=== PATIENT | female | born 1995 | race American Indian/Alaskan Native ===

== ENCOUNTER 2018-08-20 06:37 | Emergency (ER) | payer OTHER ==
[2018-08-20 06:59] VITALS: BP 133/71
[2018-08-20] MEDS ORDERED: NACL 0.9% 1000 ML 1,000 ML IV ONE (06:59)
[2018-08-20 07:27] LABS: Basophils % (Auto) 0.4 % (0.0-1.8); Eosinophils % (Auto) 0.5 % (0.0-4.3); Hematocrit 40.5 % (30.3-42.9); Hemoglobin 13.5 gm/dl (10.1-14.3); Lymphocytes # (Auto) 1.4 K/mm3 (1.2-5.4); Lymphocytes % (Auto) 21.1 % (13.4-35.0); Mean Corpuscular HGB Conc 33 % (30-34); Mean Corpuscular Volume 88 fl (79-97); Monocytes # (Auto) 0.6 K/mm3 (0.0-0.8); Monocytes % (Auto) 8.7 % (0.0-7.3); Platelet Count 210 K/mm3 (140-440); Red Cell Distribution Width 14.1 % (13.2-15.2)
[2018-08-20 07:31] LABS: Bilirubin,Urine NEG (Negative); Blood,Urine NEG (Negative); Color,Urine Yellow (Yellow); Protein,Urine <15 mg/dL mg/dL (Negative); Urobilinogen,Urine < 2.0 mg/dL (<2.0)
[2018-08-20 07:46] LABS: Alanine Aminotransferase 10 units/L (7-56); Albumin 4.5 g/dL (3.9-5); BUN/Creatinine Ratio 14; Blood Urea Nitrogen 10 mg/dL (7-17); Hemolysis Index 8
[2018-08-20] MEDS ORDERED: MORPHINE IV ONE (08:23)
[2018-08-20] MEDS ORDERED: ZOFRAN IV ONE (08:23)
--- NOTE | 2018-08-20 09:06 | Emergency Department Report ---
ED Abdominal Pain HPI - General Chief Complaint: Abdominal Pain Stated Complaint: FOOD POISONING/STOMACH PAIN Time Seen by Provider: 08/20/18 08:22 Source: patient Mode of arrival: Ambulatory Limitations: No Limitations - History of Present Illness Initial Comments: This is a 23-year-old female nontoxic, well nourished in appearance, no acute signs of distress presents to the ED with c/o of nausea and vomiting and abdominal pain 1 day. Patient describes vomiting as food content and yellow gastric acid. Patient describes abdominal pain as cramping and aching with level of 3/10 diffuse. Patient denies chest pain, short of breath, fever, chills, headache, stiff neck, numbness or tingling. Patient denies any diarrhea or constipation. Patient denies any recent travels. Patient denies any allergies or PMH. MD Complaint: abdominal pain -: Last night Location: diffuse Radiation: none Migration to: no migration Severity: mild Severity scale (0 -10): 3 Quality: cramping, aching Consistency: constant Improves With: nothing Worsens With: nothing Associated Symptoms: nausea, vomiting. denies: diarrhea, fever, chills, constipation, dysuria, hematemesis, hematochezia, melena, hematuria, anorexia, syncope - Related Data Previous Rx's Medication Instructions Recorded Last Taken Type Ibuprofen [Motrin] 400 mg PO Q8H PRN #30 tablet 02/16/16 Unknown Rx Nitrofurantoin [place]/M-Cryst 100 mg PO Q12HR #10 capsule 02/16/16 Unknown Rx [Macrobid CAP] Ondansetron [Zofran Odt] 4 mg PO Q8HR PRN #20 tab.rapdis 02/16/16 Unknown Rx metroNIDAZOLE [Flagyl] 500 mg PO Q12HR #14 tab 02/16/16 Unknown Rx traMADol [Ultram 50 MG tab] 50 mg PO Q6HR PRN #20 tablet 02/16/16 Unknown Rx Acetaminophen/Codeine [Tylenol 1 tab PO Q6H PRN #12 tab 08/20/18 Unknown Rx /Codeine # 3 tab] Ondansetron [Zofran Odt] 4 mg PO Q8HR PRN #20 tab.rapdis 08/20/18 Unknown Rx Allergies Allergy/AdvReac Type Severity Reaction Status Date / Time No Known Allergies Allergy Unverified 02/16/16 08:25 ED Review of Systems ROS: Stated complaint: FOOD POISONING/STOMACH PAIN Other details as noted in HPI Constitutional: denies: chills, fever Eyes: denies: eye pain, eye discharge, vision change ENT: denies: ear pain, throat pain Respiratory: denies: cough, shortness of breath, wheezing Cardiovascular: denies: chest pain, palpitations Endocrine: no symptoms reported Gastrointestinal: abdominal pain, nausea, vomiting. denies: diarrhea Genitourinary: denies: urgency, dysuria, discharge Musculoskeletal: denies: back pain, joint swelling, arthralgia Skin: denies: rash, lesions Neurological: denies: headache, weakness, paresthesias Psychiatric: denies: anxiety, depression Hematological/Lymphatic: denies: easy bleeding, easy bruising ED Past Medical Hx - Past Medical History Previous Medical History?: No - Surgical History Past Surgical History?: No - Social History Smoking Status: Never Smoker Substance Use Type: Marijuana - Medications Home Medications: Home Medications Medication Instructions Recorded Confirmed Last Taken Type Ibuprofen [Motrin] 400 mg PO Q8H PRN #30 tablet 02/16/16 Unknown Rx Nitrofurantoin [place]/M-Cryst 100 mg PO Q12HR #10 capsule 02/16/16 Unknown Rx [Macrobid CAP] Ondansetron [Zofran Odt] 4 mg PO Q8HR PRN #20 tab.rapdis 02/16/16 Unknown Rx metroNIDAZOLE [Flagyl] 500 mg PO Q12HR #14 tab 02/16/16 Unknown Rx traMADol [Ultram 50 MG tab] 50 mg PO Q6HR PRN #20 tablet 02/16/16 Unknown Rx Acetaminophen/Codeine [Tylenol 1 tab PO Q6H PRN #12 tab 08/20/18 Unknown Rx /Codeine # 3 tab] Ondansetron [Zofran Odt] 4 mg PO Q8HR PRN #20 tab.rapdis 08/20/18 Unknown Rx ED Physical Exam - General Limitations: No Limitations General appearance: alert, in no apparent distress - Head Head exam: Present: atraumatic, normocephalic - Eye Eye exam: Present: normal appearance - Neck Neck exam: Present: normal inspection, full ROM. Absent: tenderness, meningismus, lymphadenopathy - Respiratory Respiratory exam: Present: normal lung sounds bilaterally. Absent: respiratory distress, wheezes, rales, rhonchi, stridor, chest wall tenderness, accessory muscle use, decreased breath sounds, prolonged expiratory - Cardiovascular Cardiovascular Exam: Present: regular rate, normal rhythm, normal heart sounds. Absent: irregular rhythm, systolic murmur, diastolic murmur, rubs, gallop - GI/Abdominal GI/Abdominal exam: Present: soft, normal bowel sounds. Absent: distended, tenderness, guarding, rebound, rigid, diminished bowel sounds, hyperactive bowel sounds, hypoactive bowel sounds, mass, bruit, pulsatile mass, hernia - Expanded GI/Abdominal Exam Expanded GI/Abdominal exam: Absent: psoas sign, Sanderson's sign, Rovsing's sign, tenderness at Mcburney's Point, ascites - Extremities Exam Extremities exam: Present: normal inspection, full ROM, normal capillary refill - Back Exam Back exam: Present: normal inspection, full ROM. Absent: tenderness, CVA tenderness (R), CVA tenderness (L), muscle spasm, paraspinal tenderness, vertebral tenderness, rash noted - Neurological Exam Neurological exam: Present: alert, oriented X3, normal gait - Psychiatric Psychiatric exam: Present: normal affect, normal mood - Skin Skin exam: Present: warm, dry, intact, normal color. Absent: rash ED Course Vital Signs 08/20/18 06:51 Temperature 98 F Pulse Rate 103 H Respiratory 16 Rate Blood Pressure 133/71 O2 Sat by Pulse 97 Oximetry - Reevaluation(s) Reevaluation #1: 08/20/18 09:06 Patient is speaking in full sentences with no signs of distress noted. ED Medical Decision Making - Lab Data Result diagrams: 08/20/18 07:07 08/20/18 07:07 - Medical Decision Making This is a 23-year-old female that presents with abdominal pain. Patient is stable and was examined by me. There is no abdominal tenderness. Negative signs of symptoms of appendicitis. Labs obtained. UA obtained. XR of abdomen obtained and dictated by the radiologist. Patient is notified of the report with no questions noted by the patient. Vital signs are stable prior to discharge. Patient received medical treatment in the ED which patient stated symptoms has resolved and subsided. Was instructed note to operate any machinery due to possible drowsiness and stated someone will drive the patient home. A by mouth challenge has been obtained and patient tolerated well with no nausea vomiting. Patient was notified of strict precautions of appendicitis symptoms and to return to the ED if symptoms occurs as soon as possible. Patient was also instructed to Follow-up with a primary care doctor in 3-5 days or if symptoms worsen and continue return to emergency room as soon as possible. At time of discharge, the patient does not seem toxic or ill in appearance. No acute signs of distress noted. Patient agrees to discharge treatment plan of care. No further questions noted by the patient. Critical care attestation.: If time is entered above; I have spent that time in minutes in the direct care of this critically ill patient, excluding procedure time. ED Disposition Clinical Impression: Nausea & vomiting Qualifiers: Vomiting type: unspecified Vomiting Intractability: non-intractable Qualified Code(s): R11.2 - Nausea with vomiting, unspecified Abdominal pain Qualifiers: Abdominal location: generalized Qualified Code(s): R10.84 - Generalized abdominal pain Disposition: - TO HOME OR SELFCARE Is pt being admited?: No Does the pt Need Aspirin: No Condition: Stable Instructions: Abdominal Pain (ED), Acute Nausea and Vomiting (ED) Additional Instructions: Follow-up with a primary care doctor in 3-5 days or if symptoms worsen and continue return to emergency room as soon as possible. Prescriptions: Acetaminophen/Codeine [Tylenol /Codeine # 3 tab] 1 tab PO Q6H PRN #12 tab PRN Reason: Pain , Severe (7-10) Ondansetron [Zofran Odt] 4 mg PO Q8HR PRN #20 tab.rapdis PRN Reason: Nausea Referrals: FAY MAC MD [Primary Care Provider] - 3-5 Days ADI MATUTE MD [Staff Physician] - 3-5 Days [facility] [Outside] - 3-5 Days [facility] [Outside] - 3-5 Days Forms: Work/School Release Form(ED)
--- NOTE | 2018-08-20 09:28 | XRay Report ---
PROCEDURE: XR ABD SERIES W CXR 1V TECHNIQUE: Chest x-ray, KUB and erect abdomen HISTORY: n/v abd pain COMPARISONS: None FINDINGS: Trachea midline. Heart size normal. No acute airspace disease. No effusion. No free air below the diaphragm Gas throughout the colon. Nonobstructive pattern. No organomegaly No renal calcification. Calcification left pelvis compatible with phlebolith No acute bony abnormality IMPRESSION: Clear chest No free air Nonobstructive bowel gas pattern. This document is electronically signed by Stanislaw Cano MD., August 20 2018 09:26:30 AM ET
== END 2018-08-20 10:01 | disposition home or self-care (01) ==
LOC: ED 06:37
DX: R10.84 Generalized abdominal pain (principal); R11.2 Nausea with vomiting, unspecified; F12.10 Cannabis abuse, uncomplicated
CPT/HCPCS: 36415; 74022; 80053; 81001; 83690; 84703; 85025; 96361; 96374; 96375; 99284; J2270; J2405; J7030

== ENCOUNTER 2018-12-21 19:14 | Inpatient (IN) | payer OTHER ==
[2018-12-21] MEDS ORDERED: ZOFRAN ODT PO ONE (19:25)
[2018-12-21] MEDS ORDERED: TYLENOL PO ONE (19:25)
--- NOTE | 2018-12-21 19:25 | Event Note ---
ED Screening Note ED Screening Note: abdominal pain that began two hours ago +n,v,d no sick contacts no PMhx no allergies to meds LNMP: november 03 This initial assessment/diagnostic orders/clinical plan/treatment(s) is/are subject to change based on patients health status, clinical progression and re- assessment by fellow clinical providers in the ED. Further treatment and workup at subsequent clinical providers discretion. Patient/guardian urged not to elope from the ED as their condition may be serious if not clinically assessed and m anaged. Initial orders include: labs, UA given zofran and ibuprofen
[2018-12-21 19:50] LABS: Basophils % (Auto) 0.3 % (0.0-1.8); Eosinophils % (Auto) 0.4 % (0.0-4.3); Hematocrit 40.8 % (30.3-42.9); Hemoglobin 13.8 gm/dl (10.1-14.3); Lymphocytes # (Auto) 1.4 K/mm3 (1.2-5.4); Lymphocytes % (Auto) 13.2 % (13.4-35.0); Mean Corpuscular HGB Conc 34 % (30-34); Mean Corpuscular Volume 90 fl (79-97); Monocytes # (Auto) 0.6 K/mm3 (0.0-0.8); Monocytes % (Auto) 5.4 % (0.0-7.3); Platelet Count 208 K/mm3 (140-440); Red Blood Count 4.52 M/mm3 (3.65-5.03); Red Cell Distribution Width 13.7 % (13.2-15.2)
[2018-12-21] MEDS ORDERED: NACL 0.9% 1000 ML 1,000 ML IV ONE ×2 (20:07→23:02)
[2018-12-21] MEDS ORDERED: ZOFRAN IV ONE (20:07)
[2018-12-21] MEDS ORDERED: MORPHINE IV ONE (20:07)
[2018-12-21] MEDS ORDERED: ZOFRAN ONE (20:12)
[2018-12-21 21:09] LABS: Alanine Aminotransferase 11 units/L (7-56); Albumin 4.5 g/dL (3.9-5); BUN/Creatinine Ratio 10; Blood Urea Nitrogen 7 mg/dL (7-17); Calcium 9.4 mg/dL (8.4-10.2); Hemolysis Index 10
--- NOTE | 2018-12-21 21:18 | Emergency Department Report ---
ED Abdominal Pain HPI - General Chief Complaint: Abdominal Pain Stated Complaint: STOMACH/CHEST PAIN/VOMITING Time Seen by Provider: 12/21/18 19:24 Source: patient Mode of arrival: Ambulatory Limitations: No Limitations - History of Present Illness Initial Comments: This is a 23-year-old female nontoxic, well nourished in appearance, no acute signs of distress presents to the ED with c/o of nausea and vomiting and abdominal pain 1 day. Patient describes vomiting as food content and yellow gastric acid. Patient describes abdominal pain as cramping and aching with level of 10/10 diffuse. Patient denies chest pain, short of breath, fever, chills, headache, stiff neck, numbness or tingling. Patient denies any diarrhea or constipation. Patient denies any recent travels. Patient denies any drug allergies or significant past medical history. MD Complaint: abdominal pain -: days(s) (1) Location: diffuse Radiation: none Migration to: no migration Severity: mild Severity scale (0 -10): 10 Quality: cramping, aching Consistency: constant Improves With: nothing Worsens With: nothing Associated Symptoms: nausea, vomiting. denies: diarrhea, fever, chills, constipation, dysuria, hematemesis, hematochezia, melena, hematuria, anorexia, syncope - Related Data Previous Rx's Medication Instructions Recorded Last Taken Type Ibuprofen [Motrin] 400 mg PO Q8H PRN #30 tablet 02/16/16 Unknown Rx Nitrofurantoin [place]/M-Cryst 100 mg PO Q12HR #10 capsule 02/16/16 Unknown Rx [Macrobid CAP] Ondansetron [Zofran Odt] 4 mg PO Q8HR PRN #20 tab.rapdis 02/16/16 Unknown Rx metroNIDAZOLE [Flagyl] 500 mg PO Q12HR #14 tab 02/16/16 Unknown Rx traMADol [Ultram 50 MG tab] 50 mg PO Q6HR PRN #20 tablet 02/16/16 Unknown Rx Acetaminophen/Codeine [Tylenol 1 tab PO Q6H PRN #12 tab 08/20/18 Unknown Rx /Codeine # 3 tab] Ondansetron [Zofran Odt] 4 mg PO Q8HR PRN #20 tab.rapdis 08/20/18 Unknown Rx Allergies Allergy/AdvReac Type Severity Reaction Status Date / Time No Known Allergies Allergy Unverified 02/16/16 08:25 ED Review of Systems ROS: Stated complaint: STOMACH/CHEST PAIN/VOMITING Other details as noted in HPI Constitutional: denies: chills, fever Eyes: denies: eye pain, eye discharge, vision change ENT: denies: ear pain, throat pain Respiratory: denies: cough, shortness of breath, wheezing Cardiovascular: denies: chest pain, palpitations Endocrine: no symptoms reported Gastrointestinal: abdominal pain, nausea, vomiting. denies: diarrhea Genitourinary: denies: urgency, dysuria, discharge Musculoskeletal: denies: back pain, joint swelling, arthralgia Skin: denies: rash, lesions Neurological: denies: headache, weakness, paresthesias Psychiatric: denies: anxiety, depression Hematological/Lymphatic: denies: easy bleeding, easy bruising ED Past Medical Hx - Past Medical History Previous Medical History?: No - Surgical History Past Surgical History?: No - Social History Smoking Status: Current Every Day Smoker Substance Use Type: Marijuana - Medications Home Medications: Home Medications Medication Instructions Recorded Confirmed Last Taken Type Ibuprofen [Motrin] 400 mg PO Q8H PRN #30 tablet 02/16/16 Unknown Rx Nitrofurantoin [place]/M-Cryst 100 mg PO Q12HR #10 capsule 02/16/16 Unknown Rx [Macrobid CAP] Ondansetron [Zofran Odt] 4 mg PO Q8HR PRN #20 tab.rapdis 02/16/16 Unknown Rx metroNIDAZOLE [Flagyl] 500 mg PO Q12HR #14 tab 02/16/16 Unknown Rx traMADol [Ultram 50 MG tab] 50 mg PO Q6HR PRN #20 tablet 02/16/16 Unknown Rx Acetaminophen/Codeine [Tylenol 1 tab PO Q6H PRN #12 tab 08/20/18 Unknown Rx /Codeine # 3 tab] Ondansetron [Zofran Odt] 4 mg PO Q8HR PRN #20 tab.rapdis 08/20/18 Unknown Rx ED Physical Exam - General Limitations: No Limitations General appearance: alert, in no apparent distress - Head Head exam: Present: atraumatic, normocephalic - Eye Eye exam: Present: normal appearance - Neck Neck exam: Present: normal inspection, full ROM. Absent: tenderness, meningismus, lymphadenopathy - Respiratory Respiratory exam: Present: normal lung sounds bilaterally. Absent: respiratory distress, wheezes, rales, rhonchi, stridor, chest wall tenderness, accessory muscle use, decreased breath sounds, prolonged expiratory - Cardiovascular Cardiovascular Exam: Present: regular rate, normal rhythm, tachycardia, normal heart sounds. Absent: bradycardia, irregular rhythm, systolic murmur, diastolic murmur, rubs, gallop - GI/Abdominal GI/Abdominal exam: Present: soft, tenderness (diffuse), normal bowel sounds. Absent: distended, guarding, rebound, rigid, diminished bowel sounds - Extremities Exam Extremities exam: Present: normal inspection, full ROM - Back Exam Back exam: Present: normal inspection, full ROM. Absent: tenderness, CVA tenderness (R), CVA tenderness (L), muscle spasm, paraspinal tenderness, vertebral tenderness, rash noted - Neurological Exam Neurological exam: Present: alert, oriented X3, normal gait - Psychiatric Psychiatric exam: Present: normal affect, normal mood - Skin Skin exam: Present: warm, dry, intact, normal color. Absent: rash ED Course Vital Signs 12/21/18 12/21/18 19:25 20:10 Temperature 97.6 F Pulse Rate 113 H Respiratory 18 20 Rate Blood Pressure 136/76 O2 Sat by Pulse 99 Oximetry - Reevaluation(s) Reevaluation #1: 12/21/18 21:17 Patient is speaking in full sentences with no signs of distress noted. - Consultations Consultation #1: 12/21/18 23:21 Patient has been consulted with Dr. Gavin (hospitalist) about patient history, physical exam, and labs/CT results and accepts patient to services. ED Medical Decision Making - Lab Data Result diagrams: 12/21/18 19:34 12/21/18 19:34 - Medical Decision Making 23-year-old female that presents with general abdominal pain and intractable nausea vomiting. Patient is stable and was examined by me. Patient is admitted with Dr. Gavin for further evaluation and treatment. Patient received IV normal saline with Reglan, morphine, Dilaudid, Zofran. CT has been dictated by radiologist with by mouth and IV contrast with no acute abdomen. Mother was notified of the results with all questions noted by the patient and the mother. At time of admission, the patient does not seem toxic or ill in appearance. No acute signs of distress noted. Patient agrees to admission treatment plan of care. No further questions noted by the patient. Critical care attestation.: If time is entered above; I have spent that time in minutes in the direct care of this critically ill patient, excluding procedure time. ED Disposition Clinical Impression: Intractable pain Abdominal pain Qualifiers: Abdominal location: generalized Qualified Code(s): R10.84 - Generalized abdominal pain Intractable nausea and vomiting Qualifiers: Vomiting type: unspecified Qualified Code(s): R11.2 - Nausea with vomiting, unspecified Disposition: DC-[id number] OP ADMIT IP TO THIS HOSP Is pt being admited?: Yes Condition: Stable
[2018-12-21] MEDS ORDERED: REGLAN IV ONE (22:31)
[2018-12-21] MEDS ORDERED: DILAUDID IV ONE (23:01)
[2018-12-21] MEDS ORDERED: DILAUDID ONE (23:04)
--- NOTE | 2018-12-21 23:12 | Cat Scan Report ---
CT ABDOMEN AND PELVIS WITH CONTRAST INDICATION: Unspecified abdominal pain. COMPARISON: CT of the abdomen and pelvis with contrast from 02/16/2016. TECHNIQUE: Axial, coronal and sagittal CT imaging of the abdomen and pelvis was performed after inje ction of 100 cc Omnipaque [address] scans at this location are performed using CT dose re duction for ALARA by means of automated exposure control. FINDINGS: LOWER CHEST: No significant abnormality. LIVER: No significant abnormality. BILIARY: No significant abnormality. PANCREAS: No significant abnormality. SPLEEN: No significant abnormality. ADRENALS: No significant abnormality. KIDNEYS AND URETERS: No significant abnormality. GI TRACT: No significant abnormality of the stomach, small bowel or colon. Unremarkable appendix. PERITONEUM: A small amount of free fluid is seen along the pelvis. No free air. No fluid collection. LYMPH NODES: No significant adenopathy. VASCULATURE: The aorta and its visualized branches are patent and normal in caliber. No significant a therosclerosis. Prominent venous collaterals are seen along the pelvis. URINARY BLADDER: No significant abnormality. REPRODUCTIVE ORGANS: No significant abnormality. ADDITIONAL FINDINGS: None. SKELETAL SYSTEM: No significant abnormality. IMPRESSION: 1. A small amount of free fluid along the pelvis is likely physiologic. 2. No additional acute abnormality of the abdomen or pelvis. 3. Additional findings as above. Signer Name: Mina Hartley MD Signed: 12/21/2018 11:08 PM Workstation Name: [id number]
[2018-12-21 23:32] LABS: Bilirubin,Urine NEG (Negative); Blood,Urine NEG (Negative); Color,Urine Yellow (Yellow); Mucus,Urine 1+ /HPF; Protein,Urine <15 mg/dL mg/dL (Negative); Urobilinogen,Urine < 2.0 mg/dL (<2.0)
[2018-12-21] MEDS ORDERED: D5/0.45NS 1,000 ML IV SCH (23:45)
[2018-12-21] MEDS ORDERED: MORPHINE IV PRN (23:57)
[2018-12-21] MEDS ORDERED: SODIUM CHLORIDE FLUSH SYRINGE 10 ML IV PRN (23:57)
[2018-12-21] MEDS ORDERED: ZOFRAN IV PRN (23:57)
[2018-12-21] MEDS ORDERED: REGLAN IV PRN (23:57)
[2018-12-21] MEDS ORDERED: TYLENOL PO PRN (23:57)
--- NOTE | 2018-12-21 23:57 | History and Physical Report ---
<STEPHANIE BARROW - Last Filed: 12/22/18 01:26> History of Present Illness Date of examination: 12/21/18 Date of admission: 12/21/18 23:22 Chief complaint: abdominal pain, n/v x 1 day History of present illness: Pt is a 23-year-old female with no prior medical problem who presents to the ER with c/o severe abdominal pain, nausea and vomiting 1 day. Patient and mother in room states that the pain started around 1pm, pt states she started to have sudden sharp cramp-like pain, diffuse through out her abdomen with an intensity of 10/10. Pt states that her emesis contain digested food particle and yellow gastric acid, her last meal was a spaghetti. Patient denies any recent traveling, denies prior abdominal pain or surgery, denies SOB, denies chest pain, denies fever or chills, denies headache, denies neck stiffness, denies di arrhea or constipation. Her test was negative, her lipase was 167, she had a CT scan of the abdomen and pelvis that was negative for any pathology. Pt is admitted for further evaluation and treatment. Past History Past Medical History: No medical history Past Surgical History: No surgical history Social history: no significant social history Family history: no significant family history Medications and Allergies Allergies Allergy/AdvReac Type Severity Reaction Status Date / Time No Known Allergies Allergy Unverified 02/16/16 08:25 Home Medications Medication Instructions Recorded Confirmed Last Taken Type Ibuprofen [Motrin] 400 mg PO Q8H PRN #30 tablet 02/16/16 Unknown Rx Nitrofurantoin [place]/M-Cryst 100 mg PO Q12HR #10 capsule 02/16/16 Unknown Rx [Macrobid CAP] Ondansetron [Zofran Odt] 4 mg PO Q8HR PRN #20 tab.rapdis 02/16/16 Unknown Rx metroNIDAZOLE [Flagyl] 500 mg PO Q12HR #14 tab 02/16/16 Unknown Rx traMADol [Ultram 50 MG tab] 50 mg PO Q6HR PRN #20 tablet 02/16/16 Unknown Rx Acetaminophen/Codeine [Tylenol 1 tab PO Q6H PRN #12 tab 08/20/18 Unknown Rx /Codeine # 3 tab] Ondansetron [Zofran Odt] 4 mg PO Q8HR PRN #20 tab.rapdis 08/20/18 Unknown Rx Active Meds: Active Medications Enoxaparin Sodium (Lovenox) 40 mg SUB-Q QDAY STEPHEN Sodium Chloride (Nacl 0.9% 1000 Ml) 1,000 mls @ 999 mls/hr IV BOLUS ONE Stop: 12/22/18 00:02 Last Admin: 12/21/18 23:08 Dose: 999 mls/hr Documented by: Review of Systems Gastrointestinal: abdominal pain, nausea, vomiting Exam - Constitutional Vitals: Temp Pulse Resp BP Pulse Ox 97.6 F 113 H 20 136/76 99 12/21/18 19:25 12/21/18 19:25 12/21/18 20:10 12/21/18 19:25 12/21/18 19:25 General appearance: Present: no acute distress - EENT Eyes: Present: EOM intact ENT: hearing intact, clear oral mucosa - Neck Neck: Present: supple - Respiratory Respiratory effort: normal Respiratory: right: diminished, bilateral: CTA - Cardiovascular Rhythm: regular Heart Sounds: Present: S1 & S2 - Extremities Extremities: no ischemia, No edema Peripheral Pulses: within normal limits - Abdominal General gastrointestinal: Present: tender, non-distended Localized gastrointestinal: tender: diffuse Female genitourinary: Present: deferred - Rectal Rectal Exam: deferred - Integumentary Integumentary: Present: warm, dry - Musculoskeletal Musculoskeletal: strength equal bilaterally - Psychiatric Psychiatric: appropriate mood/affect, cooperative - Neurologic Neurologic: moves all extremities Results - Labs CBC & Chem 7: 12/21/18 19:34 12/21/18 19:34 Labs: Laboratory Last Values WBC 11.0 K/mm3 (4.5-11.0) 12/21/18 19:34 RBC 4.52 M/mm3 (3.65-5.03) 12/21/18 19:34 Hgb 13.8 gm/dl (10.1-14.3) 12/21/18 19:34 Hct 40.8 % (30.3-42.9) 12/21/18 19:34 MCV 90 fl (79-97) 12/21/18 19:34 MCH 31 pg (28-32) 12/21/18 19:34 MCHC 34 % (30-34) 12/21/18 19:34 RDW 13.7 % (13.2-15.2) 12/21/18 19:34 Plt Count 208 K/mm3 (140-440) 12/21/18 19:34 Lymph % (Auto) 13.2 % (13.4-35.0) L 12/21/18 19:34 Pepin % (Auto) 5.4 % (0.0-7.3) 12/21/18 19:34 Eos % (Auto) 0.4 % (0.0-4.3) 12/21/18 19:34 Baso % (Auto) 0.3 % (0.0-1.8) 12/21/18 19:34 Lymph # 1.4 K/mm3 (1.2-5.4) 12/21/18 19:34 Pepin # 0.6 K/mm3 (0.0-0.8) 12/21/18 19:34 Eos # 0.0 K/mm3 (0.0-0.4) 12/21/18 19:34 Baso # 0.0 K/mm3 (0.0-0.1) 12/21/18 19:34 Seg Neutrophils % 80.7 % (40.0-70.0) H 12/21/18 19:34 Seg Neutrophils # 8.9 K/mm3 (1.8-7.7) H 12/21/18 19:34 Sodium 138 mmol/L (137-145) 12/21/18 19:34 Potassium 4.3 mmol/L (3.6-5.0) 12/21/18 19:34 Chloride 101.9 mmol/L (98-107) 12/21/18 19:34 Carbon Dioxide 22 mmol/L (22-30) 12/21/18 19:34 18 mmol/L 12/21/18 19:34 BUN 7 mg/dL (7-17) 12/21/18 19:34 0.7 mg/dL (0.7-1.2) 12/21/18 19:34 Estimated GFR > 60 ml/min 12/21/18 19:34 10 % 12/21/18 19:34 Glucose 154 mg/dL (65-100) H 12/21/18 19:34 Calcium 9.4 mg/dL (8.4-10.2) 12/21/18 19:34 0.30 mg/dL (0.1-1.2) 12/21/18 19:34 AST 19 units/L (5-40) 12/21/18 19:34 ALT 11 units/L (7-56) 12/21/18 19:34 69 units/L (35-129) 12/21/18 19:34 7.6 g/dL (6.3-8.2) 12/21/18 19:34 4.5 g/dL (3.9-5) 12/21/18 19:34 1.5 % 12/21/18 19:34 167 units/L (13-60) H 12/21/18 19:34 HCG, Quant < 2 mIU/mL (0-4) 12/21/18 19:34 Yellow (Yellow) 12/21/18 23:15 Clear (Clear) 12/21/18 23:15 5.0 (5.0-7.0) 12/21/18 23:15 Ur Specific [place] 1.047 (1.003-1.030) H 12/21/18 23:15 <15 mg/dl mg/dL (Negative) 12/21/18 23:15 50 mg/dL (Negative) 12/21/18 23:15 Tr mg/dL (Negative) 12/21/18 23:15 Neg (Negative) 12/21/18 23:15 Neg (Negative) 12/21/18 23:15 Neg (Negative) 12/21/18 23:15 < 2.0 mg/dL (<2.0) 12/21/18 23:15 Ur Leukocyte Esterase Neg (Negative) 12/21/18 23:15 1.0 /HPF (0.0-6.0) 12/21/18 23:15 1.0 /HPF (0.0-6.0) 12/21/18 23:15 U Epithel Cells (Auto) 3.0 /HPF (0-13.0) 12/21/18 23:15 1+ /HPF 12/21/18 23:15 Assessment and Plan Assessment and plan: 1. Intractable abd pain, nausea and vomiting 2. Acute Gastroenteritis (etiology unclear) 3. Elevated lipase 4. Hyperglycemia Plan Pt is admitted to med/surg NPO now for bowel rest IVF with NS for hydration Pain control with morphine PRN Antiemetic with Zofran Protonix 40 IV Q day Repeat lipase level, fasting Blood glucose, Electrolytes K/Mg in am DVT prophylaxis Plan d/w pt and mother in room voiced understanding Pt's condition and plan of care d/w Dr Gavin Advance Directives: Yes VTE prophylaxis?: Mechanical Plan of care discussed with patient/family: Yes <KARIME GAVIN - Last Filed: 12/22/18 03:33> History of Present Illness Date of admission: 12/21/18 23:22 Medications and Allergies Active Meds: Active Medications Acetaminophen (Tylenol) 650 mg PO Q4H PRN PRN Reason: Pain MILD(1-3)/Fever >100.5/ZAFAR Enoxaparin Sodium (Lovenox) 40 mg SUB-Q QDAY STEPHEN Dextrose/Sodium Chloride (D5/0.45ns) 1,000 mls @ 125 mls/hr IV DIRECT STEPHEN Metoclopramide HCl (Reglan) 10 mg IV Q6H PRN PRN Reason: Nausea And Vomiting Morphine Sulfate (Morphine) 4 mg IV Q4H PRN PRN Reason: Pain, Moderate (4-6) Ondansetron HCl (Zofran) 4 mg IV Q8H PRN PRN Reason: Nausea And Vomiting Sodium Chloride (Sodium Chloride Flush Syringe 10 Ml) 10 ml IV BID STEPHEN Sodium Chloride (Sodium Chloride Flush Syringe 10 Ml) 10 ml IV PRN PRN PRN Reason: LINE FLUSH Exam - Constitutional Vitals: Temp Pulse Resp BP Pulse Ox 99.3 F 95 H 20 105/47 99 12/22/18 01:51 12/22/18 01:51 12/22/18 01:51 12/22/18 01:51 12/22/18 01:51 Results - Labs CBC & Chem 7: 12/21/18 19:34 12/21/18 19:34 Labs: Laboratory Last Values WBC 11.0 K/mm3 (4.5-11.0) 12/21/18 19:34 RBC 4.52 M/mm3 (3.65-5.03) 12/21/18 19:34 Hgb 13.8 gm/dl (10.1-14.3) 12/21/18 19:34 Hct 40.8 % (30.3-42.9) 12/21/18 19:34 MCV 90 fl (79-97) 12/21/18 19:34 MCH 31 pg (28-32) 12/21/18 19:34 MCHC 34 % (30-34) 12/21/18 19:34 RDW 13.7 % (13.2-15.2) 12/21/18 19:34 Plt Count 208 K/mm3 (140-440) 12/21/18 19:34 Lymph % (Auto) 13.2 % (13.4-35.0) L 12/21/18 19:34 Pepin % (Auto) 5.4 % (0.0-7.3) 12/21/18 19:34 Eos % (Auto) 0.4 % (0.0-4.3) 12/21/18 19:34 Baso % (Auto) 0.3 % (0.0-1.8) 12/21/18 19:34 Lymph # 1.4 K/mm3 (1.2-5.4) 12/21/18 19:34 Pepin # 0.6 K/mm3 (0.0-0.8) 12/21/18 19:34 Eos # 0.0 K/mm3 (0.0-0.4) 12/21/18 19:34 Baso # 0.0 K/mm3 (0.0-0.1) 12/21/18 19:34 Seg Neutrophils % 80.7 % (40.0-70.0) H 12/21/18 19:34 Seg Neutrophils # 8.9 K/mm3 (1.8-7.7) H 12/21/18 19:34 Sodium 138 mmol/L (137-145) 12/21/18 19:34 Potassium 4.3 mmol/L (3.6-5.0) 12/21/18 19:34 Chloride 101.9 mmol/L (98-107) 12/21/18 19:34 Carbon Dioxide 22 mmol/L (22-30) 12/21/18 19:34 18 mmol/L 12/21/18 19:34 BUN 7 mg/dL (7-17) 12/21/18 19:34 0.7 mg/dL (0.7-1.2) 12/21/18 19:34 Estimated GFR > 60 ml/min 12/21/18 19:34 10 % 12/21/18 19:34 Glucose 154 mg/dL (65-100) H 12/21/18 19:34 Calcium 9.4 mg/dL (8.4-10.2) 12/21/18 19:34 0.30 mg/dL (0.1-1.2) 12/21/18 19:34 AST 19 units/L (5-40) 12/21/18 19:34 ALT 11 units/L (7-56) 12/21/18 19:34 69 units/L (35-129) 12/21/18 19:34 7.6 g/dL (6.3-8.2) 12/21/18 19:34 4.5 g/dL (3.9-5) 12/21/18 19:34 1.5 % 12/21/18 19:34 167 units/L (13-60) H 12/21/18 19:34 HCG, Quant < 2 mIU/mL (0-4) 12/21/18 19:34 Yellow (Yellow) 12/21/18 23:15 Clear (Clear) 12/21/18 23:15 5.0 (5.0-7.0) 12/21/18 23:15 Ur Specific [place] 1.047 (1.003-1.030) H 12/21/18 23:15 <15 mg/dl mg/dL (Negative) 12/21/18 23:15 50 mg/dL (Negative) 12/21/18 23:15 Tr mg/dL (Negative) 12/21/18 23:15 Neg (Negative) 12/21/18 23:15 Neg (Negative) 12/21/18 23:15 Neg (Negative) 12/21/18 23:15 < 2.0 mg/dL (<2.0) 12/21/18 23:15 Ur Leukocyte Esterase Neg (Negative) 12/21/18 23:15 1.0 /HPF (0.0-6.0) 12/21/18 23:15 1.0 /HPF (0.0-6.0) 12/21/18 23:15 U Epithel Cells (Auto) 3.0 /HPF (0-13.0) 12/21/18 23:15 1+ /HPF 12/21/18 23:15 Assessment and Plan Assessment and plan: 23 old woman with no medical problem comes to the emergency room complaints of lower abdominal pain, nausea vomiting, unable to tolerate oral intake. Patient is sleepy from the narcotics given. Mom at bedside gives a history. Symptoms are mostly secondary to gastroenteritis, continue to observe
[2018-12-22] MEDS: MORPHINE IV PRN ×2 (04:42→09:01)
[2018-12-22] MEDS ORDERED: LOVENOX SUB-Q SCH (10:00)
[2018-12-22] MEDS ORDERED: SODIUM CHLORIDE FLUSH SYRINGE 10 ML IV SCH (10:00)
[2018-12-22 12:13] LABS: BUN/Creatinine Ratio 5; Blood Urea Nitrogen 3 mg/dL (7-17); Calcium 9.1 mg/dL (8.4-10.2); Hemolysis Index 2
--- NOTE | 2018-12-22 12:32 | Progress Note ---
Assessment and Plan 1. Intractable abd pain, nausea and vomiting - Ct abdomen/pelvis unremarkable 2. Acute Gastroenteritis (likely viral) 3. Elevated lipase 4. Hyperglycemia Plan Pt is admitted to med/surg started on GI soft diet IVF with NS for hydration Pain control with morphine PRN Antiemetic with Zofran Protonix 40 IV Q day Repeat lipase level, Electrolytes K/Mg in am DVT prophylaxis Subjective Date of service: 12/22/18 Interval history: Patient seen and examined No abdominal pain, continued to complain of nausea Denies any other complaints Objective - Constitutional Vitals: Vital Signs - 12hr 12/22/18 12/22/18 01:51 05:22 Temperature 99.3 F 97.9 F Pulse Rate 95 H 101 H Respiratory 20 18 Rate Blood Pressure 105/47 94/49 O2 Sat by Pulse 99 99 Oximetry General appearance: Present: no acute distress - EENT Eyes: PERRL, EOM intact ENT: hearing intact, clear oral mucosa Ears: bilateral: normal - Neck Neck: supple, normal ROM - Respiratory Respiratory effort: normal Respiratory: bilateral: CTA - Cardiovascular Rhythm: regular Heart Sounds: Present: S1 & S2. Absent: gallop, rub Extremities: pulses intact, No edema, normal color, Full ROM - Gastrointestinal General gastrointestinal: Present: soft, non-tender, non-distended, normal bowel sounds - Integumentary Integumentary: clear, warm, dry - Musculoskeletal Musculoskeletal: 1, strength equal bilaterally - Neurologic Neurologic: moves all extremities - Psychiatric Psychiatric: memory intact, appropriate mood/affect, intact judgment & insight - Labs CBC & Chem 7: 12/21/18 19:34 12/22/18 11:23 Labs: Abnormal lab results 12/21/18 12/21/18 12/21/18 Range/Units 19:34 19:34 23:15 Lymph % (Auto) 13.2 L (13.4-35.0) % Seg Neutrophils % 80.7 H (40.0-70.0) % Seg Neutrophils # 8.9 H (1.8-7.7) K/mm3 BUN (7-17) mg/dL Creatinine (0.7-1.2) mg/dL Glucose 154 H (65-100) mg/dL Lipase 167 H (13-60) units/L Ur Specific [place] 1.047 H (1.003-1.030) 12/22/18 Range/Units 11:23 Lymph % (Auto) (13.4-35.0) % Seg Neutrophils % (40.0-70.0) % Seg Neutrophils # (1.8-7.7) K/mm3 BUN 3 L (7-17) mg/dL Creatinine 0.6 L (0.7-1.2) mg/dL Glucose (65-100) mg/dL Lipase (13-60) units/L Ur Specific [place] (1.003-1.030)
[2018-12-22 13:07] VITALS: BP 124/82
== END 2018-12-22 14:08 | disposition left against medical advice (07) | DRG 392 ==
LOC: ED 19:14 → 3A 23:22
PROVIDERS: ADMIT Internal Medicine; ATTEND Internal Medicine
DX: K52.9 Noninfective gastroenteritis and colitis, unspecified (principal); F17.200 Nicotine dependence, unspecified, uncomplicated; R73.9 Hyperglycemia, unspecified; Z53.21 Procedure and treatment not carried out due to patient leaving prior to being seen by health care provider
CPT/HCPCS: 36415; 74177; 80048; 80053; 81001; 83690; 84702; 85025; G0378; J1170; J1650; J2270; J2405; J2765; J7030; Q0162; Q9967

== ENCOUNTER 2019-01-09 00:56 | Observation (INO) | payer OTHER ==
[2019-01-09 01:49] LABS: Basophils # (Auto) 0.1 K/mm3 (0.0-0.1); Basophils % (Auto) 0.7 % (0.0-1.8); Eosinophils # (Auto) 0.2 K/mm3 (0.0-0.4); Eosinophils % (Auto) 1.6 % (0.0-4.3); Hematocrit 40.9 % (30.3-42.9); Hemoglobin 13.6 gm/dl (10.1-14.3); Lymphocytes # (Auto) 3.8 K/mm3 (1.2-5.4); Lymphocytes % (Auto) 37.3 % (13.4-35.0); Mean Corpuscular HGB Conc 33 % (30-34); Mean Corpuscular Volume 90 fl (79-97); Monocytes # (Auto) 0.8 K/mm3 (0.0-0.8); Monocytes % (Auto) 7.7 % (0.0-7.3); Platelet Count 276 K/mm3 (140-440); Red Blood Count 4.52 M/mm3 (3.65-5.03); Red Cell Distribution Width 14.1 % (13.2-15.2)
[2019-01-09 02:12] LABS: Alanine Aminotransferase 9 units/L (7-56); Albumin 4.6 g/dL (3.9-5); BUN/Creatinine Ratio 13; Blood Urea Nitrogen 8 mg/dL (7-17); Calcium 9.8 mg/dL (8.4-10.2); Hemolysis Index 7
[2019-01-09] MEDS ORDERED: ZOFRAN IV ONE ×3 (02:53→07:31)
[2019-01-09] MEDS ORDERED: MORPHINE IV ONE (02:53)
[2019-01-09] MEDS ORDERED: NACL 0.9% 1000 ML 1,000 ML IV ONE (05:10)
[2019-01-09] MEDS ORDERED: DILAUDID IV ONE (05:24)
--- NOTE | 2019-01-09 05:58 | XRay Report ---
ABDOMEN FLAT AND UPRIGHT 407 INDICATION: Pain from chest radiating to abdomen, nausea, vomiting, diarrhea COMPARISON: 08/20/2018 FINDINGS: No pneumoperitoneum is seen. Elongated rectangular structure overlying the left pelvis pres umably is external to the patient though possibly could be internal. Bowel gas pattern is unremarkabl e. Signer Name: Shashi Quintana MD Signed: 01/09/2019 5:54 AM Workstation Name: [id number]
--- NOTE | 2019-01-09 06:19 | Emergency Department Report ---
HPI - General Chief Complaint: Abdominal Pain Time Seen by Provider: 01/09/19 02:51 - HPI HPI: 24-year-old Yee female presents to the emergency department with complaint of generalized abdominal pain, nausea and vomiting and has been going on for the past 2 or 3 hours prior to presentation. She denies any fever, dysuria, vaginal bleeding or discharge. The patient was recently admitted to this hospital for similar symptoms and the diagnosis of intractable abdominal pain and vomiting. However the patient left AMA at that time shortly after being admitted. She denies having a primary care physician. She did not take anything for her symptoms prior to arrival. No recent travel or sick contacts at home. ED Past Medical Hx - Past Medical History Previous Medical History?: No Hx Hypertension: No Hx Heart Attack/AMI: No Hx Congestive Heart Failure: No Hx Diabetes: No Hx Deep Vein Thrombosis: No Hx Asthma: No Hx COPD: No Hx HIV: No - Surgical History Past Surgical History?: Yes Hx Coronary Stent: No Hx Pacemaker: No Hx Internal Defibrillator: No Additional Surgical History: tonsil - Social History Smoking Status: Current Every Day Smoker Substance Use Type: None - Medications Home Medications: Home Medications Medication Instructions Recorded Confirmed Last Taken Type Ibuprofen [Motrin] 400 mg PO Q8H PRN #30 tablet 02/16/16 12/22/18 Unknown Rx Nitrofurantoin [place]/M-Cryst 100 mg PO Q12HR #10 capsule 02/16/16 12/22/18 1 Day Ago Rx [Macrobid CAP] ~12/21/18 100 metroNIDAZOLE [Flagyl] 500 mg PO Q12HR #14 tab 02/16/16 12/22/18 Unknown Rx traMADol [Ultram 50 MG tab] 50 mg PO Q6HR PRN #20 tablet 02/16/16 12/22/18 Unknown Rx Acetaminophen/Codeine [Tylenol 1 tab PO Q6H PRN #12 tab 08/20/18 12/22/18 Unknown Rx /Codeine # 3 tab] Ondansetron [Zofran Odt] 4 mg PO Q8HR PRN #20 tab.rapdis 08/20/18 12/22/18 Unknown Rx Ondansetron [Zofran ODT TAB] 4 mg PO Q8HR PRN #14 tab.rapdis 01/09/19 Unknown Rx ED Review of Systems ROS: Stated complaint: ABD PAIN/EMESIS Other details as noted in HPI Comment: All other systems reviewed and negative Constitutional: denies: chills, fever Eyes: denies: eye pain, vision change ENT: denies: ear pain, throat pain Respiratory: denies: cough, shortness of breath Cardiovascular: denies: chest pain, palpitations Gastrointestinal: abdominal pain, nausea, vomiting Musculoskeletal: denies: back pain, arthralgia Skin: denies: rash, lesions Neurological: denies: headache, weakness Physical Exam - Physical Exam Vital Signs: Vital Signs 01/09/19 01/09/19 01/09/19 02:10 03:10 03:31 Temperature 97.7 F Pulse Rate 102 H 81 Respiratory 17 18 15 Rate Blood Pressure 129/75 Blood Pressure 112/73 [Right] O2 Sat by Pulse 100 96 Oximetry 01/09/19 01/09/19 01/09/19 03:40 04:01 04:31 Temperature Pulse Rate 92 H 82 Respiratory 16 15 13 Rate Blood Pressure 123/72 114/78 Blood Pressure [Right] O2 Sat by Pulse 99 99 Oximetry 01/09/19 01/09/19 05:01 05:30 Temperature Pulse Rate 86 Respiratory 12 18 Rate Blood Pressure 122/60 Blood Pressure [Right] O2 Sat by Pulse 100 Oximetry Physical Exam: GENERAL: Patient is rolling around on the gurney, crying HENT: Normocephalic. Atraumatic. Patient has moist mucous membranes. EYES: Extraocular motions are intact. Pupils equal reactive to light bilaterally. NECK: Supple. Trachea is midline. CHEST/LUNGS: Clear to auscultation. There is no respiratory distress noted. HEART/CARDIOVASCULAR: Regular. There is no tachycardia. There is no murmur. ABDOMEN: Abdomen is soft. There is generalized tenderness to palpation of the abdomen. No guarding. Patient has normal bowel sounds. There is no abdominal distention. SKIN: Skin is warm and dry. NEURO: The patient is awake, alert. The patient has no focal neurologic deficits. Normal speech. MUSCULOSKELETAL: There is no tenderness or deformity. There is no evidence of acute injury. ED Course Vital Signs 01/09/19 01/09/19 01/09/19 02:10 03:10 03:31 Temperature 97.7 F Pulse Rate 102 H 81 Respiratory 17 18 15 Rate Blood Pressure 129/75 Blood Pressure 112/73 [Right] O2 Sat by Pulse 100 96 Oximetry 01/09/19 01/09/19 01/09/19 03:40 04:01 04:31 Temperature Pulse Rate 92 H 82 Respiratory 16 15 13 Rate Blood Pressure 123/72 114/78 Blood Pressure [Right] O2 Sat by Pulse 99 99 Oximetry 01/09/19 01/09/19 05:01 05:30 Temperature Pulse Rate 86 Respiratory 12 18 Rate Blood Pressure 122/60 Blood Pressure [Right] O2 Sat by Pulse 100 Oximetry ED Medical Decision Making - Lab Data Result diagrams: 01/09/19 01:25 01/09/19 01:25 - Radiology Data Radiology results: image reviewed interpreted by me: Abdominal x-ray shows nonspecific nonobstructive bowel gas - Medical Decision Making This patient presents with some acute abdominal pain, nausea and vomiting that started just prior to presentation. She does have a history of some intractable abdominal pain and vomiting in the past but left AMA from that admission about 2 weeks ago. Abdominal x-ray shows nonspecific, nonobstructive bowel gas. Labs have thus far been mostly unremarkable. She has not yet been able to leave a urine sample. She has been given a dose of morphine, Dilaudid, 2 doses of Zofran, and has received IV fluid resuscitation. The patient still complains of significant abdominal pain and has some vomiting. Patient will be admitted to the hospital for further evaluation or treatment was accepted for admission by the hospitalist, Dr. Conway. - Differential Diagnosis gastroparesis, cyclic vomiting syndrome, cannabinoid hyperemesis Critical Care Time: No Critical care attestation.: If time is entered above; I have spent that time in minutes in the direct care of this critically ill patient, excluding procedure time. ED Disposition Clinical Impression: Intractable pain Abdominal pain Qualifiers: Abdominal location: generalized Qualified Code(s): R10.84 - Generalized abdominal pain Nausea & vomiting Qualifiers: Vomiting type: unspecified Vomiting Intractability: intractable Qualified Code(s): R11.2 - Nausea with vomiting, unspecified Intractable nausea and vomiting Qualifiers: Vomiting type: unspecified Qualified Code(s): R11.2 - Nausea with vomiting, unspecified Disposition: DC-01 TO HOME OR SELFCARE Is pt being admited?: No Condition: Stable Instructions: Acute Nausea and Vomiting (ED), Abdominal Pain (ED) Additional Instructions: Please follow up with a primary care physician in the next few days. I am also giving you a referral for [facility] to follow up regarding your abdominal pain. Return to the emergency Department with any worsening of your symptoms or any acute distress. Increase your oral rehydration. Prescriptions: Ondansetron [Zofran ODT TAB] 4 mg PO Q8HR PRN #14 tab.rapdis PRN Reason: Nausea And Vomiting Referrals: GERARDO THRASHER MD [Primary Care Provider] - 2-3 Days [facility] [Provider Group] - 3-5 Days Time of Disposition: 06:21
[2019-01-09] MEDS ORDERED: MORPHINE IV PRN (07:40)
[2019-01-09] MEDS ORDERED: ZOFRAN IV PRN (11:24)
[2019-01-09] MEDS ORDERED: TYLENOL PO PRN (11:24)
[2019-01-09] MEDS ORDERED: SODIUM CHLORIDE FLUSH SYRINGE 10 ML IV PRN (11:24)
--- NOTE | 2019-01-09 11:24 | History and Physical Report ---
History of Present Illness Date of examination: 01/09/19 Date of admission: 01/09/19 07:01 Chief complaint: Abd pain, nausea, vomiting,diarrhea x 2 days History of present illness: patient is 24 yo presents with upper abdominal pain, nausea, vomiting, diarrhea for 2 days. had similar symptoms 3 weeks ago, admitted here, CT Abd was unremarkable. Past History Past Medical History: No medical history Past Surgical History: tonsillectomy, Other (D and C) Social history: single, smoking (occasionally), alcohol abuse (occasionally), full code Family history: diabetes (Mother has diabetes) Medications and Allergies Allergies Allergy/AdvReac Type Severity Reaction Status Date / Time No Known Allergies Allergy Unverified 02/16/16 08:25 Home Medications Medication Instructions Recorded Confirmed Last Taken Type Ibuprofen [Motrin] 400 mg PO Q8H PRN #30 tablet 02/16/16 12/22/18 Unknown Rx Nitrofurantoin [place]/M-Cryst 100 mg PO Q12HR #10 capsule 02/16/16 12/22/18 1 Day Ago Rx [Macrobid CAP] ~12/21/18 100 metroNIDAZOLE [Flagyl] 500 mg PO Q12HR #14 tab 02/16/16 12/22/18 Unknown Rx traMADol [Ultram 50 MG tab] 50 mg PO Q6HR PRN #20 tablet 02/16/16 12/22/18 Unknown Rx Acetaminophen/Codeine [Tylenol 1 tab PO Q6H PRN #12 tab 08/20/18 12/22/18 Un known Rx /Codeine # 3 tab] Ondansetron [Zofran Odt] 4 mg PO Q8HR PRN #20 tab.rapdis 08/20/18 12/22/18 Unknown Rx Ondansetron [Zofran ODT TAB] 4 mg PO Q8HR PRN #14 tab.rapdis 01/09/19 Unknown Rx Active Meds: Active Medications Morphine Sulfate (Morphine) 4 mg IV Q4H PRN PRN Reason: Pain , Severe (7-10) Last Admin: 01/09/19 07:51 Dose: 4 mg Documented by: Pantoprazole Sodium (Protonix) 40 mg IV QDAY STEPHEN Exam - Physical Exam Narrative exam: Gen: Not in acute distress, Lying in bed HEENT: Normocephalic, atraumatic Neck: supple, no JVD Heart: S1 and S2 reg, no murmurs, rubs or gallop Lungs: Clear to auscultation, no rhonchi, no wheeze Abd: soft, mild tender upper to mid abdomen, no rebound tenderness, non distended, normal BS, Ext: No edema, no clubbing, no cyanosis Neuro: Awake, alert, oriented X 3, no focal neurological signs - Constitutional Vitals: Temp Pulse Resp BP Pulse Ox 98.2 F 89 19 115/67 100 01/09/19 11:14 01/09/19 11:14 01/09/19 11:14 01/09/19 11:14 01/09/19 11:14 Results - Labs CBC & Chem 7: 01/09/19 01:25 01/09/19 01:25 Labs: Abnormal lab results 01/09/19 01/09/19 Range/Units 01:25 01:25 Lymph % (Auto) 37.3 H (13.4-35.0) % [place] % (Auto) 7.7 H (0.0-7.3) % Carbon Dioxide 18 L (22-30) mmol/L Creatinine 0.6 L (0.7-1.2) mg/dL Glucose 148 H (65-100) mg/dL Lipase 67 H (13-60) units/L Assessment and Plan Abdominal pain Admit Poss gastritis/gastroenteritis protonix iv fluid Consult GI acute gastroenteritis stool culture iv fluid
[2019-01-09] MEDS: MORPHINE IV PRN ×2 (12:07→17:27)
[2019-01-09] MEDS: PROTONIX IV SCH (12:07)
[2019-01-09] MEDS: D5/0.45NS 1,000 ML IV SCH (12:09)
--- NOTE | 2019-01-09 13:18 | Ultrasound Report ---
ULTRASOUND ABDOMEN, COMPLETE INDICATION: Abdominal pain with nausea and vomiting for one day. COMPARISON: CT abdomen pelvis with contrast dated 12/21/2018.. FINDINGS: Pancreas: No significant abnormality. Abdominal Aorta: No significant abnormality. IVC: No significant abnormality. Liver: The liver measures 12.8 cm in length. No significant abnormality. Normal hepatopedal blood fl ow in the main portal vein. Gallbladder: No significant abnormality. Bile ducts: No significant abnormality. Common bile duct measures mm. Kidneys: Right: 10.2 cm in length. No significant abnormality. Left: 0.6 cm in length. No signifi cant abnormality. Spleen: No significant abnormality. Free fluid: None. Additional Findings: None. IMPRESSION: No sonographic abnormality of the abdomen. Signer Name: Eran Spencer Jr, MD Signed: 01/09/2019 1:14 PM Workstation Name: [id number]
--- NOTE | 2019-01-09 15:10 | Consultation ---
History of Present Illness - Reason for Consult Consult date: 01/09/19 abdominal pain Requesting physician: AJIT MILTON - History of Present Illness Ms. Calvin is a 24-year-old admitted with abdominal pain, nausea, vomiting, and diarrhea. Patient states that she has episodes of this occurring 2 or 3 times a year for more than 5 years. She usually goes to the emergency room, gets pain meds, and is discharged without further problem. There is no clear etiology for these symptoms. They typically start with her having a sense of substernal squeezing and of bugs running down her sternum and into her abdomen and running around. She will then develop sweats along with nausea and vomiting and diarrhea and have to curl up. Once she gets pain meds, she is usually fine. In between attacks, she has no problems with abdominal pain or food intolerances. Bowel movements occur either on a daily to every other day basis. There is no weight loss. There is no GI bleeding. Of note, the attack yesterday was precipitated by extreme emotional distress with her boyfriend. Patient notes that she started to cry and shortly after that, her symptoms started. Currently, she is well without any problems. She had similar problems on December 21 and was admitted here in the hospital and had basically normal labs except for mildly elevated lipase. CT of the abdomen was normal then. Meds reviewed. Past History Past Medical History: No medical history Past Surgical History: tonsillectomy, Other (D and C) Social history: single, smoking (occasionally, when she goes to club with her boyfriend), full code. denies: alcohol abuse (occasionally) Family history: diabetes (Mother has diabetes) Medications and Allergies Allergies Allergy/AdvReac Type Severity Reaction Status Date / Time No Known Allergies Allergy Unverified 02/16/16 08:25 Home Medications Medication Instructions Recorded Confirmed Last Taken Type Ibuprofen [Motrin] 400 mg PO Q8H PRN #30 tablet 02/16/16 12/22/18 Unknown Rx Nitrofurantoin [place]/M-Cryst 100 mg PO Q12HR #10 capsule 02/16/16 12/22/18 1 Day Ago Rx [Macrobid CAP] ~12/21/18 100 metroNIDAZOLE [Flagyl] 500 mg PO Q12HR #14 tab 02/16/16 12/22/18 Unknown Rx traMADol [Ultram 50 MG tab] 50 mg PO Q6HR PRN #20 tablet 02/16/16 12/22/18 Unknown Rx Acetaminophen/Codeine [Tylenol 1 tab PO Q6H PRN #12 tab 08/20/18 12/22/18 Unknown Rx /Codeine # 3 tab] Ondansetron [Zofran Odt] 4 mg PO Q8HR PRN #20 tab.rapdis 08/20/18 12/22/18 Unknown Rx Ondansetron [Zofran ODT TAB] 4 mg PO Q8HR PRN #14 tab.rapdis 01/09/19 Unknown Rx Active Meds: Active Medications Acetaminophen (Tylenol) 650 mg PO Q4H PRN PRN Reason: Pain MILD(1-3)/Fever >100.5/ZAFAR Dextrose/Sodium Chloride (D5/0.45ns) 1,000 mls @ 75 mls/hr IV DIRECT STEPHEN Last Admin: 01/09/19 12:09 Dose: 75 mls/hr Documented by: Morphine Sulfate (Morphine) 2 mg IV Q4H PRN PRN Reason: Pain, Moderate (4-6) Last Admin: 01/09/19 12:07 Dose: 2 mg Documented by: Ondansetron HCl (Zofran) 4 mg IV Q8H PRN PRN Reason: Nausea And Vomiting Pantoprazole Sodium (Protonix) 40 mg IV QDAY [facility] Last Admin: 01/09/19 12:07 Dose: 40 mg Documented by: Sodium Chloride (Sodium Chloride Flush Syringe 10 Ml) 10 ml IV BID STEPHEN Sodium Chloride (Sodium Chloride Flush Syringe 10 Ml) 10 ml IV PRN PRN PRN Reason: LINE FLUSH Review of Systems All systems: negative (as noted in HPI) Exam - Constitutional Vitals: Temp Pulse Resp BP Pulse Ox 97.1 F L 79 20 107/64 100 01/09/19 11:15 01/09/19 11:15 01/09/19 11:15 01/09/19 11:15 01/09/19 11:15 General appearance: Present: no acute distress, other (thin) - EENT Eyes: Present: PERRL, EOM intact ENT: hearing intact - Neck Neck: Present: supple - Respiratory Respiratory effort: normal Respiratory: bilateral: CTA - Cardiovascular Rhythm: regular Heart Sounds: Present: S1 & S2 - Extremities Extremities: No edema - Abdominal General gastrointestinal: Present: soft, non-tender Results - Labs CBC & Chem 7: 01/09/19 01:25 01/09/19 01:25 Labs: Abnormal lab results 01/09/19 01/09/19 Range/Units 01:25 01:25 Lymph % (Auto) 37.3 H (13.4-35.0) % [place] % (Auto) 7.7 H (0.0-7.3) % Carbon Dioxide 18 L (22-30) mmol/L Creatinine 0.6 L (0.7-1.2) mg/dL Glucose 148 H (65-100) mg/dL Lipase 67 H (13-60) units/L - Imaging and Cardiology CT scan - abdomen: report reviewed US - abdomen: report reviewed (Normal) Assessment and Plan 1. Abdominal pain/N/V/D - intermittent symptoms for years, transient. No clear pathophysiology, and no intervening symptoms. These may well be functional in origin and precipitated by stress. Pt currently feels well. Doubt IBD, biliary colic, or PUD. Pt denies heartburn symptoms. - no further evaluation at this time. - if recurs, HIDA scan with CCK - may give trial of Levsin SL to take prn with attack
[2019-01-09 17:29] LABS: Bilirubin,Urine NEG (Negative); Blood,Urine NEG (Negative); Color,Urine Yellow (Yellow); Hyaline Casts,Urine 2 /LPF; Mucus,Urine FEW /HPF; Protein,Urine <15 mg/dL mg/dL (Negative); Urobilinogen,Urine < 2.0 mg/dL (<2.0)
[2019-01-09] MEDS: SODIUM CHLORIDE FLUSH SYRINGE 10 ML IV SCH (21:06)
[2019-01-10] MEDS: D5/0.45NS 1,000 ML IV SCH (04:38)
[2019-01-10 07:09] VITALS: BP 117/73
[2019-01-10] MEDS: PROTONIX IV SCH (09:52)
[2019-01-10] MEDS: SODIUM CHLORIDE FLUSH SYRINGE 10 ML IV SCH (09:53)
--- NOTE | 2019-01-10 10:45 | Discharge Summary ---
Providers - Providers Date of Admission: 01/09/19 07:01 Date of discharge: 01/10/19 Attending physician: AJIT MILTON 01/09/19 13:33 Consult to Physician [CONS] Routine Comment: Consulting Provider: LEROY DARLING Physician Instructions: Reason For Exam: Abdominal pain Primary care physician: GERARDO THRASHER Hospitalization Condition: Fair Disposition: DC-01 TO HOME OR SELFCARE Exam - Constitutional Vitals: Temp Pulse Resp BP Pulse Ox 98.5 F 64 16 117/73 99 01/10/19 06:13 01/10/19 06:13 01/10/19 06:13 01/10/19 06:13 01/10/19 06:13 Plan Activity: no restrictions Diet: regular Plan of Treatment: 1.Follow up with PCP or [facility] in 1 week Assessment: 1.Acute viral gastroenteritis Follow up with: GERARDO THRASHER MD [Primary Care Provider] - 2-3 Days Prescriptions: Promethazine [Phenergan] 25 mg PO Q6HR PRN #20 tab PRN Reason: Nausea
[2019-01-11] MEDS ORDERED: PROTONIX PO SCH (10:00)
== END 2019-01-10 12:33 | disposition home or self-care (01) ==
LOC: ED 00:56 → 3A 07:01 → INTOOBSV 07:01 → 3A 10:04
PROVIDERS: ADMIT Internal Medicine; ATTEND Internal Medicine
DX: K52.9 Noninfective gastroenteritis and colitis, unspecified (principal); R11.2 Nausea with vomiting, unspecified
CPT/HCPCS: 36415; 74019; 76700; 80053; 81001; 83690; 84703; 85025; 87116; 96361; 96374; 96375; 96376; 99284; C9113; G0378; J1170; J2270; J2405; J7030